=== PATIENT | male | born 1940 | race Caucasian/White ===

== ENCOUNTER 2016-08-29 12:35 | Observation (INO) | payer OTHER ==
[~2016-08-29] VITALS: Ht 172.7 cm; Wt 82.1 kg
[~2016-08-29 12:35] MED LIST: AMBIEN10 MG PO; ASPIR 8181 M1 PO; DYAZIDE, MA1 CAPSULE PO; LORTAB 5-325 M1 EACH PO; NAPROSYN500 MG PO; NEXIUM40 MG PO; NORVASC10 MG PO; PLAQUENIL200 MG PO; PROAIR HFA8.5 GM IH; SYMBICORT60 INHALA1 IH; ZESTRIL10 MG PO
[2016-08-29 13:20] LABS: HEMATOCRIT 47.1 % (38.0-50.0); MCH 30.3 PG (29.0-34.0); MCHC 33.3 G/DL (30.0-36.0); MCV 90.8 FL (86-99); MEAN PLAT.VOLUME 10.8 uM^3 (9.0-12.4); PLATELET COUNT 220 K/uL (156-360); RBC DIS.WIDTH-CV 12.8 % (11.8-14.6); RBC DIS.WIDTH-SD 42.3 % (39-53); RED BLOOD COUNT 5.19 M/uL (4.00-5.50); WHITE BLOOD COUNT 8.8 K/uL (4.1-10.2)
[2016-08-29 13:32] LABS: CHLORIDE 101 mEq/L (99-109); POTASSIUM 4.9 mEq/L (3.7-5.4); SODIUM 137 mEq/L (136-147)
[2016-08-29 13:34] LABS: GLUCOSE 176 mg/dL (70-99)
[2016-08-29 13:35] LABS: ANION GAP 12 MEQ/L (2-14)
[2016-08-29 13:38] LABS: GFR ESTIMATE (CALCULATED) 53 mL/min/
[2016-08-29 13:39] LABS: UREA NITROGEN (BUN) 19 mg/dL (9-23)
[2016-08-29 13:41] LABS: TROP-I INTERPRETATION NEGATIVE; TROPONIN-I < 0.01 ng/mL (0.0-0.30)
[2016-08-29 15:59] LABS: ALKALINE PHOSPHATASE 56 IU/L (3-129)
[2016-08-29 16:01] LABS: DIRECT BILIRUBIN 0.3 mg/dL (0.0-0.3)
[2016-08-29 16:02] LABS: LIPASE 302 U/L (1.0-51.0)
[2016-08-29] MEDS ORDERED: PERCOCET 5/31 TABLET PO (18:00)
[2016-08-29] MEDS ORDERED: ZOFRAN8 MG PO (18:00)
[2016-08-29] MEDS ORDERED: VITAMIN D-3 401 EACH PO (22:20)
[2016-08-29] MEDS ORDERED: ZOCOR20 MG PO (22:20)
[2016-08-29] MEDS ORDERED: POTASSIUM-9999 MG PO (22:21)
[2016-08-30 00:54] VITALS: BP 102/62
[2016-08-30 04:30] VITALS: BP 116/68
[2016-08-30 06:09] LABS: HEMATOCRIT 45.8 % (38.0-50.0); MCH 30.1 PG (29.0-34.0); MCHC 32.8 G/DL (30.0-36.0); MEAN PLAT.VOLUME 10.6 uM^3 (9.0-12.4); PLATELET COUNT 222 K/uL (156-360); RBC DIS.WIDTH-CV 12.9 % (11.8-14.6); RBC DIS.WIDTH-SD 43.7 % (39-53); RED BLOOD COUNT 4.98 M/uL (4.00-5.50); WHITE BLOOD COUNT 8.3 K/uL (4.1-10.2)
[2016-08-30 06:34] LABS: ANION GAP 9 MEQ/L (2-14); CHLORIDE 101 MEQ/L (99-109); GFR ESTIMATE (CALCULATED) 57 mL/min/; GLUCOSE 125 mg/dL (70-99); POTASSIUM 4.3 MEQ/L (3.7-5.4); SAMPLE HEMOLYSIS CHECK 0; SAMPLE ICTERIC CHECK 0; SAMPLE LIPEMIA CHECK 0; SODIUM 138 MEQ/L (136-147); UREA NITROGEN (BUN) 16 mg/dL (9-23)
[2016-08-30 09:39] VITALS: BP 115/67
[2016-08-30 10:05] LABS: TROP-I INTERPRETATION NEGATIVE; TROPONIN-I < 0.01 ng/mL (0.0-0.30)
[2016-08-30 10:52] LABS: ALKALINE PHOSPHATASE 52 IU/L (3-129); DIRECT BILIRUBIN 0.2 mg/dL (0.0-0.3); TOTAL BILIRUBIN 0.8 MG/DL (0.0-1.0)
[2016-08-30 11:22] LABS: LIPASE 49 U/L (1.0-51.0)
[2016-08-30 11:30] VITALS: BP 127/67
[2016-08-30 14:28] LABS: TROP-I INTERPRETATION NEGATIVE; TROPONIN-I < 0.01 ng/mL (0.0-0.30)
== END 2016-08-30 15:21 | disposition home or self-care (01) ==
LOC: EME 12:35 → EDOF 23:08 → 5WEST 23:08 → EDOF 23:08 → 5WEST 08-30 00:23
PROVIDERS: Hospitalist
DX: R07.9 Chest pain, unspecified (principal); K85.90 Acute pancreatitis without necrosis or infection, unspecified; I10 Essential (primary) hypertension; J44.9 Chronic obstructive pulmonary disease, unspecified; J45.909 Unspecified asthma, uncomplicated; E78.5 Hyperlipidemia, unspecified; F41.9 Anxiety disorder, unspecified; K21.9 Gastro-esophageal reflux disease without esophagitis
CPT/HCPCS: 71020; 71275; 74176; 76705; 80048; 80076; 83690; 84484; 85027; 93005; 93306; 94640; 99202; G0378; J1644; J7030